=== PATIENT | male | born 1965 | race Caucasian/White ===

== ENCOUNTER 2017-01-11 18:16 | Inpatient (IN) | payer BC ==
[~2017-01-11] VITALS: Ht 170.2 cm; Wt 120.2 kg
[2017-01-11] VITALS (21 sets, daily range): BP systolic 68–105; BP diastolic 30–55
[~2017-01-11 18:16] MED LIST: ASPI325T PO; CORE25TA PO; HYDR25TAB PO; LISI-538 PO; NEXI20CA PO; PERC5TAB12 PO; SIMV40TA2 PO; ZOLO50TA PO
[2017-01-11] MEDS ORDERED: ASPI81TA24 PO (18:40)
[2017-01-11] MEDS ORDERED: CALC600T57 PO (18:40)
[2017-01-11] MEDS ORDERED: ATOR40TA75 PO (18:40)
[2017-01-11] MEDS ORDERED: NS 500 ML IV ONE (18:45)
--- NOTE | 2017-01-11 18:53 | REP ---
Portable chest, 06:24 p.m., 01/11/2017, single AP view, the patient supine: Comparison is 2014. There is an endotracheal tube with the tip in satisfactory location at the level of the aortic arch. Patient is rotated. There is chronic cardiomegaly, unchanged. The lung beatty are clear. The delfino, mediastinum, and bony thorax are changed. Signed by Amari Potts MD 01/11/2017 06:45 P
[2017-01-11] MEDS ORDERED: NOREPINEPHRINE 4 MG/4 ML AMP As Ordered ONE (19:00)
[2017-01-11 19:06] LABS: ADD MANUAL DIFFER YES; MEAN CORPUSCULAR HEMOGLOBIN 31.2 pg (27.0-33.0); MEAN CORPUSCULAR HGB CONC 32.7 g/dl (32.0-36.5); MEAN CORPUSCULAR VOLUME 95.4 fl (80.0-96.0); PLATELET COUNT, AUTOMATED 335 k/mm3 (150-450); RED CELL DISTRIBUTION WIDTH 12.1 % (11.5-14.5); WHITE BLOOD COUNT 21.6 K/mm3 (4.0-10.0)
[2017-01-11 19:17] LABS: ABG BASE EXCESS -26.8 (-2.0-2.0); ABG HCO3 6.2 MEQ/L (22.0-26.0); ABG PARTIAL PRESSURE CO2 34.3 mmHg (35.0-45.0); ABG PARTIAL PRESSURE O2 151.1 mmHg (75.0-100.0); ABG STANDARD HCO3 6.9 MEQ/L (22.0-26.0); ABG TOTAL CO2 7.3 MEQ/L (22.0-29.0)
[2017-01-11 19:21] LABS: ABG pH (ARTERIAL) 6.876 UNITS (7.350-7.450); METHADONE URINE NEGATIVE (NEGATIVE)
[2017-01-11] MEDS ORDERED: ISOVUE-370 76% 100ML VIAL (Q9967) As Ordered ONE (19:21)
[2017-01-11 19:26] LABS: ALBUMIN 3.7 GM/DL (3.2-5.2); ALBUMIN/GLOBULIN RATIO 1.06 (1.00-1.93); ALKALINE PHOSPHATASE 75 U/L (45-117); ALT/SGPT 42 U/L (12-78); ANION GAP 31 MEQ/L (8-16); AST/SGOT 21 U/L (15-37); BILIRUBIN,DIRECT 0.1 MG/DL (0.0-0.2); BILIRUBIN,TOTAL 0.3 MG/DL (0.2-1.0); BLOOD UREA NITROGEN 13 MG/DL (7-18); CALCIUM LEVEL 9.1 MG/DL (8.5-10.1); CARBON DIOXIDE LEVEL 9 MEQ/L (21-32); CHLORIDE LEVEL 78 MEQ/L (98-107); CREATININE FOR GFR 2.95 MG/DL (0.70-1.30); GLOMERULAR FILTRATION RATE 24.1 (>56); GLUCOSE, FASTING 173 MG/DL (70-105); SODIUM LEVEL 118 MEQ/L (136-145); TOTAL PROTEIN 7.2 GM/DL (6.4-8.2)
[2017-01-11] MEDS ORDERED: NOREPINEPHRINE BITARTRATE 8 MG in D5W 500 ML IV SCH ×2 (19:30→20:44)
[2017-01-11 19:52] LABS: BANDS 2 % (< 11)
[2017-01-11 20:14] LABS: OSMOLALITY SERUM 318 MOSM/KG (275-295)
--- NOTE | 2017-01-11 20:30 | REPUSA ---
CT of the abdomen and pelvis with contrast Clinical statement: abdominal distention, G.I. bleeding. Technique: Multiple axial CT images were obtained from the base of the lungs through the floor of the pelvis utilizing 5 mm axial slices after administration of nonionic intravenous contrast. Coronal an d sagittal reconstructions were also obtained. Comparison: 01/11/2017. Findings: Chest: The visualized lung bases demonstrate minimal atelectasis bilaterally. Abdomen: The liver, spleen, pancreas, kidneys, gallbladder, and adrenal glands are unremarkable. The aorta is within normal limits, with stable mild atherosclerotic calcifications noted. There is no ashley dence of abdominal lymphadenopathy or ascites. A nasogastric tube is in place within the stomach. Pelvis: The bowel is unremarkable, with no obstructive or inflammatory changes. The appendix is xavier l. The urinary bladder is catheterized, but within normal limits. The other pelvic structures appear grossly intact. There is no evidence of pelvic lymphadenopathy or ascites. Bones: There are no suspicious osseous abnormalities seen. There is mild degenerative disc disease at L4/L5 and L5/S1. Impression: 1. No obstructive or inflammatory bowel changes. 2. No evidence of hydronephrosis or nephrolithiasis. 3. Minimal atelectasis in the lower lungs bilaterally. 4. Mild atherosclerotic changes in the abdominal aorta. No evidence of aneurysm or dissection. 5. Mild spondylosis of the lumbar spine.
--- NOTE | 2017-01-11 20:30 | REPUSA ---
CT of the head Clinical history: unresponsive. Protocol: Multiple axial CT images obtained with 5 mm slice thickness were obtained through the head without administration of contrast. Comparison: 08/25/2011. Findings: The ventricles and sulci are symmetric bilaterally. There are periventricular areas of low attenuation in the subcortical white matter of the frontal lobes bilaterally which appears stable. Th ere is no evidence of acute hemorrhage or infarct. There is no midline shift, mass effect, or extra-a xial fluid collection. The osseous structures are unremarkable. The visualized paranasal sinuses and mastoid air cells are clear. Impression: No acute hemorrhage or infarct. Findings are consistent with mild chronic small vessel is chemic changes in the frontal lobes bilaterally, grossly stable since the prior study. If there is co ntinued clinical concern, MRI would be recommended.
[2017-01-11] MEDS ORDERED: HYDR25TAB PO (20:32)
--- NOTE | 2017-01-11 20:40 | REPUSA ---
CT angiogram of the chest Clinical statement: unresponsive. Technique: Multiple axial CT images were obtained from the thoracic inlet through the upper abdomen a fter a bolus administration of nonionic intravenous contrast. Coronal and sagittal reconstructions we re also obtained. Comparison: None. Findings: The pulmonary arteries are well-opacified with contrast, with no intraluminal filling defec ts to suggest embolism. The thoracic aorta is unremarkable. Endotracheal tube is in place. Thyroid gl and is within normal limits. There is no thoracic lymphadenopathy. There are no pericardial or pleura l effusions. There is infiltrate atelectasis in the posterior lungs bilaterally, predominately in the upper lobes This is most severe in the right upper lobe. Limited imaging of the upper abdomen is unr emarkable. A nasogastric tube is in place. There are no suspicious osseous lesions. Impression: 1. No evidence of pulmonary embolism. 2. Infiltrate/atelectasis in the posterior lungs bilaterally, predominately in the right upper lobe.
[2017-01-11] MEDS: CHLORHEXIDINE GLUCONATE 0.12 % 15ML UDC (PERIDEX ORAL RINSE) MT SCH (21:00)
[2017-01-11] MEDS ORDERED: SODIUM CHLORIDE 0.9% 1000 ML IV ONE (21:00)
[2017-01-11] MEDS ORDERED: NS IV ONE ×2 (21:30→21:45)
[2017-01-11] MEDS ORDERED: FOMEPIZOLE IV ONE ×2 (21:30→21:45)
[2017-01-11] MEDS ORDERED: VASOPRESSIN INJ 20 UNITS/ML VIAL As Ordered ONE (21:38)
[2017-01-11] MEDS ORDERED: DOPamine 400 MG/500 ML BAG IN D5W (800MCG/ML) (J1265) As Ordered ONE ×2 (21:45→23:51)
[2017-01-11] MEDS: DOPamine HCL 400 MG in APPROPRIATE DILUENT 1 EA IV SCH ×2 (21:45→23:50)
[2017-01-11] MEDS: VASOPRESSIN INJ 20 UNITS in NS 500 ML IV SCH (21:50)
[2017-01-11] MEDS: HEPARIN SOD (PORCINE) 5000 UNITS/ML VIAL SC SCH (22:00)
[2017-01-11] MEDS ORDERED: SODIUM BICARBONATE 8.4% INJ 50 ML SYRINGE As Ordered ONE (22:07)
[2017-01-11 22:28] LABS: ALBUMIN 2.8 GM/DL (3.2-5.2); ALBUMIN/GLOBULIN RATIO 0.85 (1.00-1.93); BILIRUBIN,TOTAL 0.2 MG/DL (0.2-1.0); CALCIUM LEVEL 8.7 MG/DL (8.5-10.1); CREATININE FOR GFR 2.91 MG/DL (0.70-1.30); GLOMERULAR FILTRATION RATE 24.4 (>56); MAGNESIUM LEVEL 2.5 MG/DL (1.8-2.4); TOTAL PROTEIN 6.1 GM/DL (6.4-8.2)
[2017-01-11 22:41] LABS: POTASSIUM SERUM 5.9 MEQ/L (3.5-5.1)
[2017-01-11] MEDS ORDERED: HEPARIN 1,000 UNITS/ML 10ML VIAL (FOR RADIOLOGY& DIALYSIS ONLY) XX ONE ×2 (22:45)
[2017-01-11] MEDS ORDERED: HEPARIN 1,000 UNITS/ML 10ML VIAL (FOR RADIOLOGY& DIALYSIS ONLY) XX SCH ×2 (23:00)
[2017-01-11 23:03] LABS: ABG HCO3 4.1 MEQ/L (22.0-26.0); ABG PARTIAL PRESSURE O2 189.9 mmHg (75.0-100.0); ABG STANDARD HCO3 6.1 MEQ/L (22.0-26.0); ABG TOTAL CO2 4.8 MEQ/L (22.0-29.0)
[2017-01-11 23:07] LABS: CALCIUM OXALATE CRYSTALS SMALL
[2017-01-11 23:07] LABS: ABG PARTIAL PRESSURE CO2 21.8 mmHg (35.0-45.0); ABG pH (ARTERIAL) 6.895 UNITS (7.350-7.450)
[2017-01-11 23:08] LABS: ABG BASE EXCESS -27.9 (-2.0-2.0)
--- NOTE | 2017-01-11 23:08 | RO ---
DATE OF PROCEDURE: 01/11/2017 PREPROCEDURE DIAGNOSIS: Hypotension. POSTPROCEDURE DIAGNOSIS: Hypotension. PROCEDURE: Right IJ triple lumen catheter. SURGEON: Quentin Garcia DO DEALER SALES MANAGER: None ANESTHESIA: The patient was not responsive on mechanical ventilation. Consent was deemed urgent. The patient was status post cardiac arrest with peripheral vasopressors. Asked by emergency room to place a central line. gave verbal consent. Sedation the patient was on was not responsive on mechanical ventilation. DESCRIPTION OF PROCEDURE The patient was placed in the supine position. The right IJ was prepped and draped in a sterile manner with full barrier precautions, chlorhexidine. Right IJ was isolated under ultrasound and the Taina syringe was passed into the IJ on the first pass with return of venous blood flow. The wire was fed through the needle and the needle was removed. A gregorio in the skin was made. The triple-lumen catheter was fed over to the wire in a modified Seldinger technique. There were no observed complications. Wire was removed. All three ports returned venous blood flow. They flushed easily. This was sutured in at 15 cm. There were no complications. Chest x-ray confirmed positioning with the tip of the catheter at the superior vena cava (SVC). There was no pneumothorax. MTDD
--- NOTE | 2017-01-11 23:40 | RO ---
DATE OF PROCEDURE: 01/11/2017 PREPROCEDURE DIAGNOSIS: Metabolic acidosis. POSTPROCEDURE DIAGNOSIS: Metabolic acidosis. PROCEDURE: Right internal jugular (IJ) dialysis catheter 11.5 Greenlandic. SURGEON: Dr. Quentin Garcia CUT ROLL MACHINE OPERATOR: None. ANESTHESIA: Patient unresponsive, on mechanical ventilation. DESCRIPTION OF PROCEDURE: Right IJ was prepped and draped in a sterile manner. Chlorhexidine was used over the site. The right IJ had been previously removed. The [employer] syringe was then introduced in the IJ under ultrasound guidance on first pass. The wire was then advanced into the right IJ, and the catheter was advanced over the wire via modified Seldinger technique after dilation was performed. There was return of venous blood flow. Both ports flushed easily with saline. This was followed by the administration of heparin 1.5 through arterial port, 1.2 through the venous port. A sterile impregnated dressing was placed over the site along with caps over the ends of the dialysis catheter and no complications were seen.
--- NOTE | 2017-01-11 23:46 | RO ---
DATE OF PROCEDURE: 01/11/2017 PREPROCEDURE DIAGNOSIS: Bradycardia. POSTPROCEDURE DIAGNOSIS: Bradycardia. PROCEDURE: Left internal jugular venous catheterization. SURGEON: Dr. Quentin Garcia ECOLOGICAL RISK ASSESSOR: None ANESTHESIA: The patient was sedated on mechanical ventilation. Procedure deemed urgent for resuscitation. DESCRIPTION OF PROCEDURE: Left IJ was prepped and draped in a sterile manner with chlorhexidine, full barrier precautions. Time-out was performed with two patient identifiers, identifying correct site, correct procedure. The [employer] syringe was then introduced into the IJ on the first pass with return of venous blood flow. Wire was fed through the needle and the needle was removed. The triple lumen catheter was then placed via modified Seldinger technique. The wire was removed. All three ports returned venous blood flow and flushed easily. Chest x-ray confirmed adequate placement. There were no observed complications. [facility]
[2017-01-12] VITALS (41 sets, daily range): BP systolic 65–125; BP diastolic 28–59
--- NOTE | 2017-01-12 00:25 | HPE ---
DATE OF ADMISSION: 01/11/2017 HISTORY AND PHYSICAL/CRITICAL CARE NOTE Critical care time was 2 hours; this excludes all procedures. I was called to the emergency room after Mr. Lebron presented in cardiac arrest. Mr. Lebron is a 51-year-old male that was found unresponsive in his yard after his returned home from work. Emergency medical services (EMS) was called. On arrival to the emergency room (ER), he had no pulse, was in pulseless electrical activity (PEA). Cardiopulmonary resuscitation was initiated and 3 minutes of CPR and epinephrine caused return of spontaneous circulation with normal blood pressure. He then had a second bout of CPR due to pulseless arrest for 6 minutes. Since that time, he has had no sedation and there has been no neurologic response. Initially it was not clear the cause of his cardiac arrest, according to the ER physician. EKG did not show ST abnormalities and troponin was fairly low at less than 0.02. Chest CT was performed showing no significant central pulmonary embolism. I do see a small peripheral pulmonary embolism in the right lower basilar segment which would not explain the cardiac arrest. May be present due to his prolonged collapse. On my evaluation walking into the room he was hypotensive, so, therefore, I placed a central line. After evaluating his laboratory evaluation, as outlined below, I determined there was a significant osmolar gap of 68. The denied any new illnesses, any new fevers, any suicidal ideation, any other consumption. After I had a conversation with the , who also denied any new medications, his sister approached me and stated that he had called her intoxicated and not making any sense. She was concerned for his well being at that point in time and indicated that she did believe he could do something to take his life. Past medical history is significant for hypertension. HOME MEDICATIONS: Include: - carvedilol 25 mg by mouth twice a day - hydrochlorothiazide 25 mg by mouth daily - lisinopril 20 mg by mouth twice a day - aspirin 81 mg - atorvastatin 40 mg - calcium with vitamin D ALLERGIES: No known drug allergies. SOCIAL AND FAMILY HISTORY: Unobtainable. REVIEW OF SYSTEMS: Unobtainable. PHYSICAL EXAMINATION: Currently, pulse is 69, blood pressure is 86/50 on three pressors. He is on vasopressin, Levophed at 50 and dopamine was initiated due to bradycardia. I was continually managing his hypotension at the bedside due to the severity of his acidosis and hypotension. I also gave one dose of bicarb. Respiratory rate is 21, oxygen was 97% on 0.60 FIO2. HEENT: Pupils are sluggish, barely reactive. He has no nystagmus, no rolling eye movements. He has no response to pain. No epistaxis. Tongue is midline. Endotracheal tube, orogastric tube is in place. Neck is supple. No tracheal deviation or mass. Large circumference. Cardiac: Regular S1, S2 without audible murmur, rub or gallop. No elevated jugular venous pressure (JVP). No significant peripheral edema. Pulmonary: Clear to auscultation without rales, rhonchi or wheezes. No dullness to percussion. Abdomen is obese, soft, nontender, nondistended. No active bowel sounds. No palpable mass or discernible hepatosplenomegaly. No bruits over the large vessels of the abdomen. Extremities: No cyanosis, clubbing or edema. Skin: Face is red, appears to be in a sunburn pattern. Musculoskeletal: Normal muscle tone. No evidence of fracture or effusion. Neurologic: No posturing. No tremor. No evidence of seizure activity. Laboratory evaluation showed a white blood cell count of 21.6, hemoglobin of 14.8, hematocrit of 45.3, platelet count of 335 with 74% neutrophilia. Arterial blood gas shows a pH of 6.88, pCO2 of 34, pO2 of 151. Sodium is 118, potassium 6.0, chloride 78, bicarbonate is 9, BUN is 13, creatinine is 2.95, glucose is 173, calcium is 9.1, troponin is less than 0.02, albumin is 3.7. Toxicology screen was negative. Acetaminophen, salicylate and ethanol levels were unremarkable. Anion gap was 31. Serum osmolality was 318, calculated osmolality was 250. Chest x-ray shows good placement of endotracheal tube. The most recent chest x-ray shows good placement of the right dialysis catheter and left IJ triple lumen catheter. There is some perihilar fullness, likely from the amount of fluid he has been receiving to help sustain his pressure. CT of head shows no evidence of acute hemorrhage or infarct. No midline shift. No mass effect. Mild chronic small vessel ischemic changes are seen. CT angio, as mentioned above, shows no evidence of pulmonary embolism, according to the radiologist. I believe I do see a very small peripheral pulmonary embolism in the right base. There is some minimal atelectasis, some very small pleural effusions. Thoracic aorta is unremarkable. Endotracheal tube is in place. No thoracic adenopathy. No pericardial effusions. IMPRESSION: 1. Cardiopulmonary arrest, likely secondary to toxic ingestion due to high osmolar gap. At this point in time the patient is having difficulty with bradycardia. I have placed him on dopamine. He is also on Levophed and vasopressin. The family does not want the patient to undergo cardiopulmonary resuscitation again. They are willing to attempt dialysis. Transthoracic echocardiogram was performed to ensure adequate cardiac output. 2. Hyponatremia, severe in nature. Will aim for correction of 6 today. The patient has already received large amounts of normal saline. Will closely monitor sodium, especially during continuous renal replacement therapy (CRRT). 3. Severe anion gap acidosis with osmolar gap, suspected methanol or ethylene glycol toxicity. I gave fomepizole at 15 mg per kg. Will continue dialysis. 4. Renal failure. The patient surprisingly still has some urine output. Will begin CRRT. 5. Hypotension, severe in nature, requiring three vasopressors. Overall poor prognosis. Critical care time was 2 hours; this excludes all procedures.
[2017-01-12] MEDS ORDERED: MIDAZOLAM INJ 2 MG/2 ML VIAL (J2250) As Ordered ONE (00:28)
[2017-01-12] MEDS ORDERED: CALCIUM CHLORIDE 10% 1 GM/10 ML SYR ONE (00:36)
[2017-01-12] MEDS ORDERED: SODIUM BICARBONATE 8.4% INJ 50 ML SYRINGE ONE (00:36)
[2017-01-12] MEDS ORDERED: EPINEPHrine 1MG/10ML SYRINGE 1.5IN ONE (00:36)
[2017-01-12] MEDS ORDERED: VECURONIUM BROMIDE 10 MG VIAL As Ordered ONE (00:47)
--- NOTE | 2017-01-12 00:54 | REP ---
Clinical: Hemodialysis catheter placement. Comparison: 01/11/2017 at 10:14 p.m. Findings: Endotracheal tube approximately 2.2 cm above the [place]. Nasogastric tube courses below left hemidiaphragm. Left IJ line with tip in the brachiocephalic vein. Right IJ line with tip in the SVC. Visualized portions of the cardiac silhouette are within normal limits and stable. Perihilar opacities and trace right basilar atelectasis cannot be excluded. No obvious effusion. No pneumothorax. Skeletal structures intact. Impression: 1. Lines and tubes in satisfactory position. 2. Questionable perihilar and right basilar atelectasis. Signed by Manuel Wasserman MD 01/12/2017 12:46 A
--- NOTE | 2017-01-12 00:56 | REP ---
Clinical: catheter placement. Comparison: 01/11/2017 at 08:44 p.m. Findings: Endotracheal tube approximately 2.5 cm above the [place]. Nasogastric tube courses below left hemidiaphragm. Left IJ line with tip in the brachiocephalic vein. Right IJ line with tip in the SVC. Mediastinum and cardiac silhouette are within normal limits and stable. Perihilar opacities cannot be excluded. No obvious effusion. No pneumothorax. Skeletal structures intact. Impression: 1. Lines and tubes in satisfactory position. 2. Questionable perihilar atelectasis. Signed by Manuel Wasserman MD 01/12/2017 12:48 A
--- NOTE | 2017-01-12 01:00 | REP ---
Clinical: catheter placement. Comparison: 01/11/2017 at 06:38 p.m. Findings: Endotracheal tube approximately 2.5 cm above the [place]. Nasogastric tube courses below left hemidiaphragm. Left IJ line with tip in the brachiocephalic vein. Right IJ line with tip in the SVC. Visualized portions of the cardiac silhouette are within normal limits and stable. Perihilar opacities and trace left basilar atelectasis cannot be excluded. No obvious effusion. No pneumothorax. Skeletal structures intact. Impression: 1. Lines and tubes in satisfactory position. 2. Questionable perihilar and left basilar atelectasis. Signed by Manuel Wasserman MD 01/12/2017 12:51 A
[2017-01-12] MEDS ORDERED: ALTEPLASE 2 MG/2 ML VIAL (J2997 PER 1MG) XX ONE (01:15)
[2017-01-12] MEDS ORDERED: DOPamine 400 MG/500 ML BAG IN D5W (800MCG/ML) (J1265) As Ordered ONE (01:40)
[2017-01-12] MEDS: DOPamine HCL 400 MG in APPROPRIATE DILUENT 1 EA IV SCH ×5 (01:40→08:06)
[2017-01-12] MEDS ORDERED: VECURONIUM BROMIDE 10 MG VIAL IV ONE (01:45)
[2017-01-12] MEDS ORDERED: MIDAZOLAM INJ 2 MG/2 ML VIAL (J2250) IV ONE (01:45)
[2017-01-12] MEDS ORDERED: SODIUM BICARBONATE 8.4% INJ 50 ML SYRINGE IV STA (02:03)
[2017-01-12] MEDS ORDERED: NOREPINEPHRINE 4 MG/4 ML AMP As Ordered ONE (03:57)
[2017-01-12] MEDS: VASOPRESSIN INJ 20 UNITS in NS 500 ML IV SCH (05:48)
--- NOTE | 2017-01-12 05:48 | CR ---
DATE OF CONSULTATION: 01/11/2017 REFERRING PHYSICIAN: Dr. Quentin Garcia. REASON FOR CONSULTATION: Acute renal failure, severe metabolic acidosis and possible toxicity. HISTORY OF PRESENT ILLNESS: Mr. Lebron is a 51-year-old gentleman with known history of hypertension, hyperlipidemia, and obesity. The patient was brought to emergency room today in unresponsive condition. Apparently he was found by his family unresponsive in his yard. On arrival, he did not have any pulse and required 3 minutes of CPR after which he was resuscitated with IV fluids and pressors due to low blood pressure. He is admitted to intensive care unit. Nephrology consultation was requested as patient is found to have severe metabolic acidosis, high osmolar gap and renal failure. He also has severe hyponatremia with sodium level 118. The patient has already received about 5 liters of IV normal saline due to persistent hypotension. PAST MEDICAL AND SURGICAL HISTORY: According to his medical record, he has history of hypertension, hyperlipidemia and obesity in addition to vitamin D deficiency. HOME MEDICATIONS. His home medications include: - Carvedilol 25 mg twice daily - hydrochlorothiazide 25 mg daily - lisinopril 20 mg twice daily - aspirin 81 mg daily - atorvastatin 40 mg daily - calcium with vitamin D ALLERGIES: The patient has no known drug allergies. PERSONAL AND SOCIAL HISTORY: The patient is and lives with his family. She does smoke about half a pack of cigarettes daily. There is history of one to two drinks of alcohol in a week. There is no known history of recreational drug use. FAMILY HISTORY: There is no known family history for end-stage renal disease. REVIEW OF SYSTEMS: The patient is unable to provide any information as he is still unresponsive on the ventilator. PHYSICAL EXAMINATION: This is a middle-aged obese male intubated and unresponsive. His heart rate is in 40s and blood pressure about 80/40 mmHg. Endotracheal tube is in place. Head is flushed but atraumatic. Pupils are dilated and poorly respond to light. Sclera is anicteric. Neck veins are difficult to be assessed. He has a central line in the internal jugular vein on both sides. Heart: Sounds are bradycardic. Lungs: Have moderate bilateral air entry. Abdomen: Obese and bowel sounds present. Extremities: Have no cyanosis or clubbing. Skin is dry and without any ulcers. Neurologically he is completely unresponsive without any sedation. LABORATORY DATA: WBC count 21.6, hemoglobin 14.8 and hematocrit 45.3. Platelets 335. Initial blood gas showed a pH of 6.87, pCO2 34.3, pO2 151 and bicarb 6.2. A repeat blood gas showed a pH of 6.89, pCO2 21.8 and pO2 189 with bicarb 6.1. Initial chemistry showed sodium 118 and potassium 6.0. Bicarb was 9, BUN 13 and creatinine 2.95. Serum osmolality 318 and lactic acid level 2.6. Calcium level 9.1. CPK 249. Repeat labs showed a sodium 119 and potassium 5.9. CO2 is 5, BUN 14 and creatinine 2.91. Ammonia level is 72. A repeat lactic acid level is 1.7. The patient had a CT angiogram done which was negative for pulmonary embolus. CT scan of abdomen and pelvis was also done which was unremarkable. Chest x-ray on arrival did not show any acute cardiopulmonary problems. PROBLEMS: 1. Severe metabolic acidosis. Concerned about ingestion of toxic substance like methyl alcohol for ethylene glycol. The patient has elevated osmolar gap without any significant hyperglycemia. He is unresponsive and there is no history available at present. The patient has been given a dose of fomapizole. Our plan is to dialyze him in order to clear acidosis and toxins. He is hypotensive and currently on two pressors. He is not likely to tolerate regular hemodialysis. CRRT is being arranged. 2. Hyponatremia. Patient has severe hyponatremia which is probably acute on chronic. He has received IV normal saline without any significant change in the serum sodium level. We will monitor his electrolytes closely and recheck sodium in a few hours. 3. Hyperkalemia. This is related to metabolic acidosis and acute renal failure. It is likely to correct with dialysis and correction of metabolic acidosis. 4. Shock. The patient is in shock without any obvious sepsis. His lactic acid level is already corrected. He had received large doses of IV fluids and is currently on two pressors. I recommend to continue with IV fluid resuscitation. Once he is hemodynamically more stable then we can taper his pressors. However, I would recommend to continue pressors at this point until dialysis is initiated and tolerated. 5. Severe metabolic acidosis. Most likely this is related to renal failure, shock and possible ingestion of toxic materials. At this point, his blood pressure has improved with pressors. He has received more than 5 liters of IV fluid and dialysis is likely to correct his acidosis over next several hours. Blood gas will be repeated again in the morning. I thank you for involving me in the care of Mr. Lebron. I will follow him along with you.
[2017-01-12] MEDS: HEPARIN SOD (PORCINE) 5000 UNITS/ML VIAL SC SCH (06:57)
[2017-01-12] MEDS: IPRATROPIUM 0.5MG/ALBUTEROL 2.5MG INH SOL UD 3ML (DUONEB)(J7620) NEB SCH ×2 (08:00→08:19)
[2017-01-12] MEDS: CHLORHEXIDINE GLUCONATE 0.12 % 15ML UDC (PERIDEX ORAL RINSE) MT SCH (08:05)
[2017-01-12] MEDS ORDERED: PANTOPRAZOLE 40MG INJ (PROTONIX) (C9113) IV SCH (09:00)
--- NOTE | 2017-01-12 09:37 | ECHO ---
DATE OF PROCEDURE: 01/11/2017 AGE: 51 GENDER: Male HEIGHT: 67 inches WEIGHT: 265 pounds BODY SURFACE AREA: 2.44 meters squared INPATIENT ICU: Room [address] Quentin Garcia INDICATION: Abnormal EKG. MEASUREMENTS: 2-D measurements: RV - 3.4 cm LV - 5.0 cm Septum 1.3 cm Posterior wall 1.3 cm Aortic root 2.9 cm LA - 4.1 cm LVEF 65% Doppler measurements: AV - 1.7 meters per second LVOT - 0.87 meters per second LVOT diameter 2.1 cm MV-E 84, A 64, EA ratio 1.3 Early mitral deceleration time 194 milliseconds E prime 5.7, A prime 7, EE prime ratio 14.7 PV - 0.9 meters per second Pulmonary artery acceleration time 106 milliseconds RVSP 31 mmHg IVC - 1.8 cm COMMENTS: Sinus bradycardia without intraventricular conduction disturbance. Technically difficult study in light of the patient's body habitus but diagnostically useful information was still obtained. Mildly dilated left atrium but normal left ventricular size. Right heart chamber sizes were also normal. LV wall thickness was mildly increased symmetrically. On real-time imaging from the parasternal and apical as well as subcostal projections wall motion was symmetrical and normal to hyperkinetic. Mildly thickened mitral annulus but normal leaflet thickness and excursion with no posterior systolic buckling. Three equal aortic cusps with mild thickening of the cusp edges but adequate cusp separation. Normal aortic root size. No apparent intracardiac mass or pericardial effusion. Color flow Doppler study taken from the parasternal and apical as well as subcostal projections showed very mild mitral, trace aortic and mild tricuspid insufficiency. Guided continuous wave Doppler of his aortic valve taken from the apical long axis in five chamber projection showed a normal peak systolic velocity against LV outflow tract obstruction. Pulsed and continuous wave Doppler of his LV inflow tract taken from the apical four-chamber projection showed normal diastolic filling velocities against mitral stenosis. The filling pattern was currently normal as was the early mitral deceleration time. Tissue Doppler suggested a degree of impaired LV diastolic function with currently estimated mean left atrial pressure upper limits of normal. Pulsed and continuous wave Doppler of his pulmonary trunk showed a normal peak systolic velocity against RV outflow tract obstruction. His pulmonary artery acceleration time was slightly abbreviated suggestive of a very mild the elevated pulmonary vascular resistance. Guided continuous wave Doppler of his tricuspid valve allowed our estimation of his right ventricular systolic pressure ( borderline to mildly increased). His inferior vena cava was of normal size with normal respiratory collapse against an elevated central venous pressure. CONCLUSIONS: Technically difficult study in light of the patient's body habitus. Mild concentric left ventricle hypertrophy with preserved systolic function. Mildly dilated left atrium with Doppler features of a degree of impaired diastolic function with current estimated mean left atrial pressure upper limits of normal. Normal right heart chamber sizes with Doppler sign of borderline pulmonary hypertension. Normal IVC size and collapse against an elevated central venous pressure. Mild aortic valvular sclerosis without stenosis and only trace insufficiency. Mildly thickened mitral annulus with very mild insufficiency. cc: Wilfredo Haas MD
--- NOTE | 2017-01-12 11:06 | ECGEPIP ---
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
--- NOTE | 2017-01-12 20:36 | DSES ---
DATE OF ADMISSION: 01/11/2017 DATE OF DISCHARGE: 01/12/17 Mr. Lebron presented to the emergency room yesterday with pulseless electrical activity (PEA) arrest after being found unresponsive in the field. After a thorough examination there did not appear to be a myocardial infarction, no evidence of a large pulmonary embolism, and no evidence of head trauma based on head CT. He had two rounds of CPR in the emergency room. He was severely acidotic with a pH of 6.8 with an anion gap of 31 with a lactate of 2. He had a significantly elevated osmolar gap to 68, therefore it was suspected that there was either methanol or ethylene glycol toxicity. Attempts at RECYCLING TECH was performed after administration of fomepizole. The patient was on three pressors with bradycardia. The patient's family did not want any further resuscitation, refused laboratories this morning, along with imaging. He had no evidence of significant neurologic recovery. The and family are at bedside. Withdrawal of care was performed and the patient at 10:42. 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 CONSULTATIONS DURING HOSPITALIZATION: Nephrology. PROCEDURES DURING HOSPITALIZATION: Right internal triple lumen catheter placement, left triple-lumen catheter placement and right IJ dialysis catheter placement, RECYCLING TECH, and CPR. DISCHARGE DIAGNOSES 1. Cardiopulmonary arrest. 2. Hyponatremia. 3. Severe metabolic anion gap acidosis. 4. Severe osmolar gap acidosis. 5. Renal failure. 6. Hypotension. 7. Bradycardia. 8. Hyperkalemia related to acidosis and shock without sepsis. Lactate is only 2.6. 9. 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 SRAVANTHI
[2017-01-16 00:06] LABS: ETHANOL Negative % (0.000-0.010); ETHYLENE GLYCOL LABCORP 193 mg/dL (None detected)
== END 2017-01-12 10:42 | disposition expired | DRG 816 ==
LOC: EDBD 18:16 → M ED 21:25 → M ED INP 21:26 → M ICU 21:39 → UNDODISIN 01-12 12:00
PROVIDERS: ADMIT Internal Medicine Pulmonary Disease; ATTEND Internal Medicine Pulmonary Disease
DX: T65.892A Toxic effect of other specified substances, intentional self-harm, initial encounter (principal); R57.1 Hypovolemic shock; R40.20 Unspecified coma; N17.9 Acute kidney failure, unspecified; I95.9 Hypotension, unspecified; E87.1 Hypo-osmolality and hyponatremia; Z68.41 Body mass index [BMI] 40.0-44.9, adult; E55.9 Vitamin D deficiency, unspecified; E66.9 Obesity, unspecified; Z79.899 Other long term (current) drug therapy; Z79.82 Long term (current) use of aspirin; F17.210 Nicotine dependence, cigarettes, uncomplicated; E87.6 Hypokalemia

== ENCOUNTER → 2017-01-12 | Outpatient (REF) ==
[~2017-01-12] MED LIST changes: +ASPI81TA13 PO; +ATOR40TA PO; +CALC600T57 PO; -PERC5TAB12 PO; +PERC5TAB6 PO
== END ==
LOC: M LAB 13:10
DX: Z02.89 Encounter for other administrative examinations (principal)